=== PATIENT | female | born 1960 | race Caucasian/White ===

== ENCOUNTER 2021-04-04 19:35 | Inpatient (IN) ==
[2021-04-04 20:45] LABS: Basophils # (auto) 0.01 K/uL (0-0.2); Basophils % (auto) 0.1 %; Hematocrit (blood only) 43.7 % (37-47); Hemoglobin 15.3 g/dL (12.0-16.0); Immature Granulocytes # (auto) 0.02 K/uL (0.00-0.02); Immature Granulocytes % (auto) 0.2 %; Mean Corpuscular Hemoglobin 30.7 pg (25-34); Mean Corpuscular Volume 87.6 fL (80-100); Monocytes # (auto) 1.08 K/uL (0.11-0.59); Monocytes % (auto) 10.8 %; Neutrophils # (auto) 8.16 K/uL (1.4-6.5); Neutrophils % (auto) 81.9 %; Platelet Count 246 K/uL (130-400); RDW Coefficient of Variation 12.3 % (11.5-14.5); RDW Standard Deviation 39.2 fL (36.4-46.3); Red Blood Count 4.99 M/uL (4.2-5.4); White Blood Count 9.97 K/uL (4.8-10.8)
[2021-04-04 21:19] LABS: Albumin Level 3.3 gm/dl (3.4-5.0); BUN Creatinine Ratio 20.5 (10-20); Calcium 9.4 mg/dl (8.5-10.1); Creatinine Clr Calc Pharmacy 53.4 ml/min; Est GFR (African American) 73.2 ml/min; Est GFR (Non-African American) 63.1 ml/min; Potassium 4.4 mmol/L (3.5-5.1)
[2021-04-04 21:22] LABS: Albumin Globulin Ratio 0.7 (0.9-2); Bilirubin,Total 3.7 mg/dl (0.2-1); Globulin 4.4 gm/dl (2.5-4.0); Total Protein 7.7 gm/dl (6.4-8.2)
[2021-04-04] MEDS ORDERED: SODIUM CHLORIDE 0.9% 1000ML 1,000 ML IV ONE (21:58)
--- NOTE | 2021-04-04 21:59 | Emergency Department Note ---
History of Present Illness General Chief complaint: Vertigo Stated complaint: VERTIGO, DEHYDRATION Time Seen by Provider: 04/04/21 21:33 Source: patient Mode of arrival: ambulatory Limitations: no limitations History of Present Illness Maximum Pain Intensity: 10 This patient is a 61-year-old female who presents to the emergency department accompanied by her daughter for evaluation of possible dehydration. Patient states that she has been sick for the past 2 days. She initially had a migraine, then developed vertigo and reports a pain in the left side of her abdomen. She states that she often works out in the heat and was out in the heat all day prior to her symptoms started. She has not had anything to eat or drink in the past 2 days because she has no appetite. She feels tired. She states that she feels hot but is unsure if she has a fever. She states that she took ibuprofen last night. She rates her pain a 10/10. She states that she feels dizzy when she stands up. She fell out of bed a few days ago because of the dizziness. She denies any recent tick bites. She is not vaccinated for COV ID-19. She denies any recent exposures to COVID-19. Home Medications Medication Instructions Recorded Confirmed Type ascorbic acid (vitamin C) 1,000 mg 1 g PO QAM 04/04/21 04/04/21 History tablet (Vitamin C) cholecalciferol (vitamin D3) 50 50 mcg PO QAM 04/04/21 04/04/21 History mcg (2,000 unit) tablet (Vitamin D3) cider [id number] 300 1 tab PO QAM 04/04/21 04/04/21 History mg-8.3 mg tablet elderberry fruit 200 mg capsule 200 mg PO QAM 04/04/21 04/04/21 History ibuprofen 200 mg tablet 400 mg PO Q6H PRN 04/04/21 04/04/21 History multivitamin with minerals-folic 1 tab PO QAM 04/04/21 04/04/21 History acid 200 mcg chewable tablet (Multivitamin Gummies) turmeric 400 mg capsule 400 mg PO QAM 04/04/21 04/04/21 History zinc 50 mg tablet 50 mg PO QAM 04/04/21 04/04/21 History Allergies Allergy/AdvReac Type Severity Reaction Status Date / Time No Known Allergies Allergy Unverified 04/04/21 21:55 Past Med/Surg History Medical History No significant past medical history Social History Smoking Status: Never smoker Hx Alcohol Use: No Hx Substance Use: No Preferred Language: Romansh Beliefs That Will Affect Care: None Current Living Situation: Alone Other Information That Helps Us Care for You: No Feels Safe at Home: Yes Safety Concerns: Feels Safe At This Time Assistive Devices: None Review of Systems A total of 10 systems reviewed and were otherwise negative Physical Exam Vital Signs Vital Signs - 24 hr 04/04/21 19:42 04/04/21 21:40 04/04/21 22:03 Temperature 37.6 C H Temperature Source Temporal Artery Scan Pulse Rate - Lying 97 H Pulse Rate - Sitting 95 H Pulse Rate - Standing 95 H Pulse Rate 106 H Pulse Rate [Finger] 82 Pulse Rhythm [Finger] Pulse Strength [Finger] Respiratory Rate 18 18 Respiratory Effort / Characteristics Non-Labored Spontaneous Non-Labored Spontaneous Respiratory Depth Normal Normal Respiratory Pattern Blood Pressure - Lying 133/67 Blood Pressure - Sitting 125/80 Blood Pressure- Standing 123/75 Blood Pressure 105/64 Blood Pressure [Right Arm] 125/81 Blood Pressure Mean 77 Blood Pressure Mean [Right Arm] 95 Blood Pressure Position [Right Arm] Lying Pulse Oximetry 96 95 Oxygen Delivery Method Room Air Room Air Sepsis Recent Fever Within 48 Hours No Sepsis New/Unexplained Change in Mental Status No Sepsis Action Taken by Nursing No Action Required 04/04/21 23:30 04/05/21 01:53 Temperature Temperature Source Pulse Rate - Lying Pulse Rate - Sitting Pulse Rate - Standing Pulse Rate Pulse Rate [Finger] 90 85 Pulse Rhythm [Finger] Regular Pulse Strength [Finger] Normal Respiratory Rate 16 16 Respiratory Effort / Characteristics Non-Labored Spontaneous Non-Labored Spontaneous Respiratory Depth Normal Normal Respiratory Pattern Regular Blood Pressure - Lying Blood Pressure - Sitting Blood Pressure- Standing Blood Pressure Blood Pressure [Right Arm] 131/76 126/70 Blood Pressure Mean Blood Pressure Mean [Right Arm] 94 88 Blood Pressure Position [Right Arm] Lying Lying Pulse Oximetry 94 96 Oxygen Delivery Method Room Air Room Air Sepsis Recent Fever Within 48 Hours Sepsis New/Unexplained Change in Mental Status Sepsis Action Taken by Nursing VITALS: Vitals are noted on the nurse's note and reviewed by myself. GENERAL: This is a 61-year-old female, tired appearing, laying with her eyes closed in bed. SKIN: The skin was without rashes. EARS: External auditory canals clear, tympanic membranes pearly nance without erythema or effusion bilaterally. EYES: Pupils equal round and reactive to light and accommodation. NOSE: Patent, turbinates without inflammation or discharge. MOUTH: Mucous membranes somewhat dry. NECK: Supple without nuchal rigidity. No lymphadenopathy. HEART: Regular rate and rhythm without murmurs gallops or rubs. LUNGS: Clear to auscultation bilaterally without wheezes, rales or rhonchi. ABDOMEN: Positive bowel sounds x 4. Abdomen is soft, there is tenderness to palpation of the left upper quadrant and left lower quadrant. Positive guarding with tenderness in the left abdomen. MUSCULOSKELETAL: Full range of motion throughout. NEURO: Patient was alert and oriented to person place and time. Course Administered Medications Sodium Chloride (Nss 1000ml) 1,000 mls @ 80 mls/hr IV .[id number] DICK Stop: 05/05/21 03:48 Last Admin: 04/05/21 04:15 Dose: 80 mls/hr Documented by: [id number] Discontinued Medications Sodium Chloride (Nss 1000ml) 1,000 mls @ 999 mls/hr IV .[id number] ONE Stop: 04/04/21 22:58 Last Infusion: 04/04/21 23:02 Dose: 0 mls/hr Documented by: [id number] Admin: 04/04/21 21:59 Dose: 999 mls/hr Documented by: [id number] Ceftriaxone Sodium (Rocephin) 1,000 mg in 50 mls @ 100 mls/hr IV NOW STA Stop: 04/05/21 01:19 Last Infusion: 04/05/21 01:41 Dose: 0 mls/hr Documented by: [id number] Admin: 04/05/21 01:09 Dose: 100 mls/hr Documented by: [id number] Cefepime HCl (Maxipime) 2,000 mg in 20 mls @ 5 mls/min IV NOW STA; Protocol Stop: 04/05/21 01:45 Last Admin: 04/05/21 02:10 Dose: 5 mls/min Documented by: [id number] Ioversol (Optiray 320 100ml) 100 ml IV ONCE ONE Stop: 04/04/21 23:20 Last Admin: 04/04/21 23:19 Dose: 93 ml Documented by: [id number] Medical Decision Making Differential Diagnosis Infection, dehydration, metabolic abnormality, hypo/hyperglycemia, electrolyte disturbance, anemia, hypoxia, cardiac sources, intracerebral event, toxicologic, neurologic, as well as other pathologies. Home Medications Current Medication List: was personally reviewed by me Laboratory Data Attestation: I reviewed the patient's lab results. Result diagrams: 04/04/21 20:28 04/04/21 20: Lab Results 04/04/21 04/04/21 04/05/21 Range/Units 20: 20: 00:20 WBC 9.97 (4.8-10.8) K/uL RBC 4.99 (4.2-5.4) M/uL Hgb 15.3 (12.0-16.0) g/dL Hct 43.7 (37-47) % MCV 87.6 (80-100) fL MCH 30.7 (25-34) pg MCHC 35.0 (32-36) g/dL RDW Std Deviation 39.2 (36.4-46.3) fL RDW Coeff of Saravanan 12.3 (11.5-14.5) % Plt Count 246 (130-400) K/uL MPV 9.0 (7.4-10.4) fL Immature Gran % (Auto) 0.2 % Neut % (Auto) 81.9 % Lymph % (Auto) 7.0 % Laurens % (Auto) 10.8 % Eos % (Auto) 0.0 % Baso % (Auto) 0.1 % Neut # (Auto) 8.16 H (1.4-6.5) K/uL Lymph # (Auto) 0.70 L (1.2-3.4) K/uL Laurens # (Auto) 1.08 H (0.11-0.59) K/uL Eos # (Auto) 0.00 (0-0.5) K/uL Baso # (Auto) 0.01 (0-0.2) K/uL Immature Gran # (Auto) 0.02 (0.00-0.02) K/uL Sodium 135 L (136-145) mmol/L Potassium 4.4 (3.5-5.1) mmol/L Chloride 103 (98-107) mmol/L Carbon Dioxide 23 (21-32) mmol/L Anion Gap 9.0 (3-11) BUN 20 H (7-18) mg/dl Creatinine 0.98 (0.6-1.2) mg/dl Est Cr Clr Drug Dosing 53.4 ml/min Est GFR ( Amer) 73.2 ml/min Est GFR (Non-Af Amer) 63.1 ml/min BUN/Creatinine Ratio 20.5 H (10-20) Glucose 98 (70-99) mg/dl Calcium 9.4 (8.5-10.1) mg/dl Magnesium 2.2 (1.8-2.4) mg/dl Total Bilirubin 3.7 H (0.2-1) mg/dl AST 35 (15-37) U/L ALT 68 (12-78) U/L Alkaline Phosphatase 169 H (45-117) U/L Total Creatine Kinase 46 (26-192) U/L Total Protein 7.7 (6.4-8.2) gm/dl Albumin 3.3 L (3.4-5.0) gm/dl Globulin 4.4 H (2.5-4.0) gm/dl Albumin/Globulin Ratio 0.7 L (0.9-2) Urine Color Cottle Urine Appearance Cloudy A (Clear) Urine pH 5.5 (4.5-7.5) Ur Specific Hines > 1.045 H (1.000-1.030) Urine Protein 2+ H (Negative) Urine Glucose (UA) Negative (Negative) Urine Ketones 3+ H (Negative) Urine Blood 3+ H (Negative) Urine Nitrite Positive A (Negative) Urine Bilirubin 1+ H (Negative) Urine Urobilinogen Positive H (Negative) Ur Leukocyte Esterase 2+ H (Negative) Urine WBC (Auto) >30 H (0-5) /hpf Urine RBC (Auto) >30 H (0-4) /hpf U Hyaline Cast (Auto) 1-5 (0-5) /lpf U Epithel Cells (Auto) 0-5 (0-5) /lpf Urine Bacteria (Auto) 4+ H (Negative) COVID-19 Eval Order SARS-CoV-2 (PCR) (Negative) 04/05/21 04/05/21 Range/Units 00:55 00:55 WBC (4.8-10.8) K/uL RBC (4.2-5.4) M/uL Hgb (12.0-16.0) g/dL Hct (37-47) % MCV (80-100) fL MCH (25-34) pg MCHC (32-36) g/dL RDW Std Deviation (36.4-46.3) fL RDW Coeff of Saravanan (11.5-14.5) % Plt Count (130-400) K/uL MPV (7.4-10.4) fL Immature Gran % (Auto) % Neut % (Auto) % Lymph % (Auto) % Laurens % (Auto) % Eos % (Auto) % Baso % (Auto) % Neut # (Auto) (1.4-6.5) K/uL Lymph # (Auto) (1.2-3.4) K/uL Laurens # (Auto) (0.11-0.59) K/uL Eos # (Auto) (0-0.5) K/uL Baso # (Auto) (0-0.2) K/uL Immature Gran # (Auto) (0.00-0.02) K/uL Sodium (136-145) mmol/L Potassium (3.5-5.1) mmol/L Chloride (98-107) mmol/L Carbon Dioxide (21-32) mmol/L Anion Gap (3-11) BUN (7-18) mg/dl Creatinine (0.6-1.2) mg/dl Est Cr Clr Drug Dosing ml/min Est GFR ( Amer) ml/min Est GFR (Non-Af Amer) ml/min BUN/Creatinine Ratio (10-20) Glucose (70-99) mg/dl Calcium (8.5-10.1) mg/dl Magnesium (1.8-2.4) mg/dl Total Bilirubin (0.2-1) mg/dl AST (15-37) U/L ALT (12-78) U/L Alkaline Phosphatase (45-117) U/L Total Creatine Kinase (26-192) U/L Total Protein (6.4-8.2) gm/dl Albumin (3.4-5.0) gm/dl Globulin (2.5-4.0) gm/dl Albumin/Globulin Ratio (0.9-2) Urine Color Urine Appearance (Clear) Urine pH (4.5-7.5) Ur Specific Hines (1.000-1.030) Urine Protein (Negative) Urine Glucose (UA) (Negative) Urine Ketones (Negative) Urine Blood (Negative) Urine Nitrite (Negative) Urine Bilirubin (Negative) Urine Urobilinogen (Negative) Ur Leukocyte Esterase (Negative) Urine WBC (Auto) (0-5) /hpf Urine RBC (Auto) (0-4) /hpf U Hyaline Cast (Auto) (0-5) /lpf U Epithel Cells (Auto) (0-5) /lpf Urine Bacteria (Auto) (Negative) COVID-19 Eval Order Covid19 at [facility] SARS-CoV-2 (PCR) NEGATIVE (Negative) Imaging Data Attestation: I personally reviewed and interpreted this imaging study as follows: Radiologist's Impression: CT ABDOMEN & PELVIS With Contrast: No prior exam for comparison. Massive left-sided hydronephrosis, likely UPJ etiology. Please see the discussion below. Normal cardiac size. Left lower lobe atelectasis. Minimal right posterior dependent atelectasis. No pleural effusion or pneumothorax. Unremarkable gallbladder and biliary system. Normal liver, spleen, pancreas and bilateral adrenal glands. Normal right kidney. Massive dilatation of the left renal collecting system suggestive of severe hydronephrosis. There is no dilatation of the left ureter combination of findings suggestive of left UPJ etiology. Urological consultation recommended. The stomach is unremarkable. Nonspecific small bowel. Moderate fecal debris within the colon, more significant distally, cannot exclude mild constipation. Distinct appendix not seen with no inflammation in the region of the cecum to suggest acute appendicitis. Unremarkable urinary bladder. The uterus is anteverted. Mild degenerative disease of the spine. Radiologist: Nanette Huddleston MD MDM Narrative Continuous case monitor: Order was placed for continuous case monitor. Patient was placed on the case monitor. Patient was noted to be in normal sinus rhythm at an initial rate of 90 bpm. The patient is a 61-year-old female who presents today complaining of possible heat exhaustion. Patient has not been eating or drinking. She has been feeling dizzy and has left-sided abdominal pain. She is very tender in the left upper and lower quadrants on exam. Labs revealed no leukocytosis or anemia. Bilir ubin was found to be elevated at 3.7, AST and ALT are normal. A CT of the abdomen/pelvis shows "massive hydronephrosis" which appears to be secondary to a UPJ obstruction. Patient's urinalysis is suggestive of infection. She was given IV Rocephin. Urology was consulted and medicine was consulted for admission. Impression & Plan Obstruction of left ureteropelvic junction (UPJ), Hydronephrosis of left kidney, Urinary tract infection Discharge Plan Visit Data Chief Complaint: Vertigo Stated Complaint: VERTIGO, DEHYDRATION ED Provider: [facility] ED Midlevel Provider: Angela Park Discharge Problem: Obstruction of left ureteropelvic junction (UPJ), Hydronephrosis of left kidney, Urinary tract infection Patient Disposition: Admitted As Inpatient Discharge Instructions Interventions: ED Discharge Assessment Last Done: 04/05/21 03:26 Discharge Problem: Urinary tract infection Qualifiers: Urinary tract infection type: site unspecified Hematuria presence: with hematuria Qualified Code(s): N39.0 - Urinary tract infection, site not specified
[2021-04-04 22:54] LABS: Magnesium 2.2 mg/dl (1.8-2.4)
[2021-04-04] MEDS ORDERED: OPTIRAY 320 100ml IV ONE (23:19)
[2021-04-05 00:44] LABS: Appearance Urine Cloudy (Clear); Bacteria Urine Automated 4+ (Negative); Blood Urine 3+ (Negative); Color Urine Orange; Epithelial Cell Urine Auto 0-5 /lpf (0-5); Glucose Urine UA Negative (Negative); Ketones Urine 3+ (Negative); Leukocyte Esterase Urine 2+ (Negative); Nitrite Urine Positive (Negative); Protein Urine 2+ (Negative); RBC Urine Automated >30 /hpf (0-4); Specific Gravity Urine > 1.045 (1.000-1.030); Urobilinogen Urine Positive (Negative); WBC Urine Automated >30 /hpf (0-5); pH Urine 5.5 (4.5-7.5)
[2021-04-05 00:45] LABS: Bilirubin Urine 1+ (Negative)
[2021-04-05] MEDS ORDERED: cefTRIAXone SODIUM 1,000 MG/50 ML BAG IV STA (00:50)
--- NOTE | 2021-04-05 01:18 | Urology Consultation ---
Date of Consultation April 05, 2021 Assessment & Plan (1) Hydronephrosis: The etiology of patient's hydronephrosis is uncertain at this time. We will proceed as follows: Patient be admitted to the hospital in the hospital service By urinalysis it appears that the patient has a urinary tract infection. She is currently receiving antibiotics in the form of Rocephin which should continue and can be tailored once culture results are available We will keep the patient n.p.o. for the present time and will have her CAT scan reviewed by attending urologist to determine if cystoscopy will be required. History of Present Illness Reason for Consultation: Hydronephrosis of the left kidney History of Present Illness This 61-year-old female who presented to the emergency department secondary to vague complaints. Patient notes that approximately 2 to 3 days ago she developed a migraine headache that she felt was related to dehydration. 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 As noted her dehydration resulted in a headache which led the patient to feel generally unwell to the point where she presented to the emergency department. In the emergency department the patient had labs and imaging which independently reviewed. The patient did have a CT scan of the abdomen and pelvis that showed left-sided hydronephrosis with massive dilatation of the left renal collecting system. A CBC revealed her white blood cell count, hemoglobin, hematocrit, and platelet count are all within normal range. Chemistry profile showed her sodium was 135. Potassium was within normal range and BUN had a slight elevation at 20. Her creatinine was within the normal range. Patient was noted to have an elevated bilirubin of 3.7. Alkaline phosphatase was elevated at 169. There is no elevation of her total creatinine kinase levels. Her transaminases were noted to be normal. Urinalysis revealed cloudy urine which was positive for nitrites and bilirubin. Her urine also showed 2+ leukocyte esterase and greater than 30 white blood cells per high-power field. 4+ bacteria was noted on this specimen. A Covid test has been ordered and is pending. As the patient had nonspecific symptomatology I question her on her litany of symptoms. She denies any falls or head injuries. She has not had any double or blurry vision. She denies any epistaxis or rhinitis and she denies any sore throat. She denies any chest or neck pain. She denies any cough or shortness of breath. She notes that she did feel feverish with occasional chills but admits she did not take her temperature. She has not had any diarrhea. She does note some abdominal pain that is primarily on the left side of her upper abdomen which does not radiate and does not have any modifying factors. She does note some left-sided flank pain. She denies any dysuria or urinary frequency. She denies any hematuria. She denies any localized weakness. The patient's daughter was present at bedside and they did report a family history of kidney stones. The patient's daughter notes that she has had kidney stones in the past made of calcium oxalate as well as bilirubin. To the best of the patient's knowledge she has never suffered a kidney stone. At the time of my interview the patient was resting in bed and she was in no distress. Allergies Allergy/AdvReac Type Severity Reaction Status Date / Time No Known Allergies Allergy Unverified 04/04/21 21:55 Home Medications Medication Instructions Recorded Confirmed Type ascorbic acid (vitamin C) 1,000 mg 1 g PO QAM 04/04/21 04/04/21 History tablet (Vitamin C) cholecalciferol (vitamin D3) 50 50 mcg PO QAM 04/04/21 04/04/21 History mcg (2,000 unit) tablet (Vitamin D3) cider [id number] 300 1 tab PO QAM 04/04/21 04/04/21 History mg-8.3 mg tablet elderberry fruit 200 mg capsule 200 mg PO QAM 04/04/21 04/04/21 History ibuprofen 200 mg tablet 400 mg PO Q6H PRN 04/04/21 04/04/21 History multivitamin with minerals-folic 1 tab PO QAM 04/04/21 04/04/21 History acid 200 mcg chewable tablet (Multivitamin Gummies) turmeric 400 mg capsule 400 mg PO QAM 04/04/21 04/04/21 History zinc 50 mg tablet 50 mg PO QAM 04/04/21 04/04/21 History Patient History Medical History No significant past medical history Social History Smoking Status: Never smoker Feels Safe at Home: Yes Review of Systems Constitutional: as per Subjective / HPI Eyes: as per Subjective / HPI Ear, Nose, Mouth, Throat: as per Subjective / HPI Respiratory: as per Subjective / HPI Cardiovascular: as per Subjective / HPI Gastrointestinal: as per Subjective / HPI Genitourinary: as per Subjective / HPI Musculoskeletal: as per Subjective / HPI Integumentary: as per Subjective / HPI Neurologic: as per Subjective / HPI Physical Exam Constitutional: well developed and well nourished; no acute distress Eyes: PERRL, conjunctivae normal, anicteric sclerae ENMT: Ears: no hearing impairment Nose: no external nose abnormality Mouth: no oropharynx abnormality and no tongue abnormality Neck: trachea midline Respiratory: normal respiratory effort, lungs clear to auscultation Cardiovascular: Rate/Rhythm: regular rate and regular rhythm Gastrointestinal (Abdomen): Patient's abdomen is soft and nondistended. There are no masses organomegaly. I do not appreciate any hernias. Patient did have pain with palpation in the left upper quadrant and to a lesser degree the left lower quadrant. There is no rebound tenderness or guarding. Musculoskeletal: No gross orthopedic abnormalities. No calf tenderness. Skin: no rashes Neurologic: moves all extremities Psychiatric: A+Ox3, euthymic affect Genitourinary: + CVA tenderness (Left-sided noted with percussion. No CVA tenderness on the right.) Results & Data ([facility]) Vital Signs (Past 12 Hours) Vital Signs Temp Pulse Pulse Resp BP BP Pulse Ox 04/04/21 23:30 90 16 131/76 94 04/04/21 21:40 82 18 125/81 95 04/04/21 19:42 37.6 C H 106 H 18 105/64 96 PG Care Time/CCT Total # of Minutes Spent Total Time Spent with Patient: Total time spent is greater than 50% in coordination of care (as documented) at patient's floor/unit and/or counseling patient: Coding Level of Care Code 66096 Inpt Consult Level 5 Diagnoses Hydronephrosis N13.30
[2021-04-05] MEDS ORDERED: CEFEPIME 2,000 MG/20 ML VIAL IV STA (01:42)
--- NOTE | 2021-04-05 02:02 | History & Physical Report ---
Date of Service April 05, 2021 Assessment & Plan (1) Sepsis: Plan: Secondary to complicated UTI GMF CS, Cefepime Urology consult Re: Obstructive uropathy (Patient already evaluated at the ER by provider belt sander stone. N.p.o. status recommended in anticipation of possible procedure in a.m.) DVT prophylaxis per Lovenox subcu Full code Text document was generated using [employer] voice recognition software. It may contain grammatical or spelling errors. Kindly contact undersigned for clarification of any documentation item in question. History of Present Illness Chief Complaint: Dizziness, abdominal pain Primary Care Provider: Ryan Perez PA-C History obtained from patient and records. Medical history significant for hyperlipidemia. 2 days history of achy left-sided abdominal pain with nausea, poor appetite. Dizziness described as lightheadedness. No diarrhea. No hematuria, no dysuria symptoms. No prior episodes. Patient denies chest pain, S OB. At the ER, patient given ceftriaxone for UTI. Medical History as above Surgical History : Gynecologic procedures tonsillectomy/adenoidectomy Family History : Stroke Personal/Social history : Non-smoker, no EtOH intake, mail service coordinator Allergies Allergy/AdvReac Type Severity Reaction Status Date / Time No Known Allergies Allergy Unverified 04/04/21 21:55 Home Medications Medication Instructions Recorded Confirmed Type ascorbic acid (vitamin C) 1,000 mg 1 g PO QAM 04/04/21 04/04/21 History tablet (Vitamin C) cholecalciferol (vitamin D3) 50 50 mcg PO QAM 04/04/21 04/04/21 History mcg (2,000 unit) tablet (Vitamin D3) cider [id number] 300 1 tab PO QAM 04/04/21 04/04/21 History mg-8.3 mg tablet elderberry fruit 200 mg capsule 200 mg PO QAM 04/04/21 04/04/21 History ibuprofen 200 mg tablet 400 mg PO Q6H PRN 04/04/21 04/04/21 History multivitamin with minerals-folic 1 tab PO QAM 04/04/21 04/04/21 History acid 200 mcg chewable tablet (Multivitamin Gummies) turmeric 400 mg capsule 400 mg PO QAM 04/04/21 04/04/21 History zinc 50 mg tablet 50 mg PO QAM 04/04/21 04/04/21 History Past Med/Surg History Medical History No significant past medical history Social History Smoking Status: Never smoker Hx Alcohol Use: No Hx Substance Use: No Preferred Language: Estonian Beliefs That Will Affect Care: None Current Living Situation: Alone Other Information That Helps Us Care for You: No Feels Safe at Home: Yes Safety Concerns: Feels Safe At This Time Assistive Devices: None Review of Systems Review of Systems: As per HPI, all 10 systems reviewed, all other ROS negative Physical Exam Physical Exam: GENERAL: Comfortable, pleasant, no respiratory distress SKIN: Normal color, warm HEENT: [place] palpebral conjunctivae, no ptosis, dry buccal mucosa NECK : Supple, no tenderness CHEST : CTA, no tenderness HEART : RRR, no obvious murmurs ABDOMEN: Some distention, minimal left-sided abdominal tenderness EXTREMITIES : No LE swelling/tenderness, no other conspicuous deformities noted NEUROLOGIC : Coherent, no facial asymmetry, no other gross focality Results & Data Results & Data ([facility]) Vital Signs (Past 12 Hours) Vital Signs Temp Pulse Pulse Resp BP BP Pulse Ox 04/05/21 01:53 85 16 126/70 96 04/04/21 23:30 90 16 131/76 94 04/04/21 21:40 82 18 125/81 95 04/04/21 19:42 37.6 C H 106 H 18 105/64 96 Laboratory Results Laboratory Results WBC 9.97 K/uL (4.8-10.8) 04/04/21 20:28 RBC 4.99 M/uL (4.2-5.4) 04/04/21 20:28 Hgb 15.3 g/dL (12.0-16.0) 04/04/21 20:28 Hct 43.7 % (37-47) 04/04/21 20:28 MCV 87.6 fL (80-100) 04/04/21 20:28 MCH 30.7 pg (25-34) 04/04/21 20:28 MCHC 35.0 g/dL (32-36) 04/04/21 20:28 RDW Std Deviation 39.2 fL (36.4-46.3) 04/04/21 20:28 RDW Coeff of [place] 12.3 % (11.5-14.5) 04/04/21 20: Plt Count 246 K/uL (130-400) 04/04/21 20: MPV 9.0 fL (7.4-10.4) 04/04/21 20:28 Immature Gran % (Auto) 0.2 % 04/04/21 20: Neut % (Auto) 81.9 % 04/04/21 20: Lymph % (Auto) 7.0 % 04/04/21 20:28 [place] % (Auto) 10.8 % 04/04/21 20: Eos % (Auto) 0.0 % 04/04/21 20: Baso % (Auto) 0.1 % 04/04/21 20: Neut # (Auto) 8.16 K/uL (1.4-6.5) H 04/04/21 20:28 Lymph # (Auto) 0.70 K/uL (1.2-3.4) L 04/04/21 20:28 [place] # (Auto) 1.08 K/uL (0.11-0.59) H 04/04/21 20:28 Eos # (Auto) 0.00 K/uL (0-0.5) 04/04/21 20: Baso # (Auto) 0.01 K/uL (0-0.2) 04/04/21 20: Immature Gran # (Auto) 0.02 K/uL (0.00-0.02) 04/04/21 20: Sodium 135 mmol/L (136-145) L 04/04/21 20:28 Potassium 4.4 mmol/L (3.5-5.1) 04/04/21 20:28 Chloride 103 mmol/L (98-107) 04/04/21 20:28 Carbon Dioxide 23 mmol/L (21-32) 04/04/21 20:28 Anion Gap 9.0 (3-11) 04/04/21 20:28 BUN 20 mg/dl (7-18) H 04/04/21 20:28 Creatinine 0.98 mg/dl (0.6-1.2) 04/04/21 20:28 Est Cr Clr Drug Dosing 53.4 ml/min 04/04/21 20:28 Est GFR ( Amer) 73.2 ml/min 04/04/21 20:28 Est GFR (Non-Af Amer) 63.1 ml/min 04/04/21 20:28 BUN/Creatinine Ratio 20.5 (10-20) H 04/04/21 20:28 Glucose 98 mg/dl (70-99) 04/04/21 20:28 Calcium 9.4 mg/dl (8.5-10.1) 04/04/21 20:28 Magnesium 2.2 mg/dl (1.8-2.4) 04/04/21 20:28 Total Bilirubin 3.7 mg/dl (0.2-1) H 04/04/21 20:28 AST 35 U/L (15-37) 04/04/21 20:28 ALT 68 U/L (12-78) 04/04/21 20:28 Alkaline Phosphatase 169 U/L (45-117) H 04/04/21 20:28 Total Creatine Kinase 46 U/L (26-192) 04/04/21 20:28 Total Protein 7.7 gm/dl (6.4-8.2) 04/04/21 20:28 Albumin 3.3 gm/dl (3.4-5.0) L 04/04/21 20:28 Globulin 4.4 gm/dl (2.5-4.0) H 04/04/21 20:28 Albumin/Globulin Ratio 0.7 (0.9-2) L 04/04/21 20:28 Urine Color [place] 04/05/21 00:20 Urine Appearance Cloudy (Clear) A 04/05/21 00:20 Urine pH 5.5 (4.5-7.5) 04/05/21 00:20 Ur Specific [place] > 1.045 (1.000-1.030) H 04/05/21 00:20 Urine Protein 2+ (Negative) H 04/05/21 00:20 Urine Glucose (UA) Negative (Negative) 04/05/21 00:20 Urine Ketones 3+ (Negative) H 04/05/21 00:20 Urine Blood 3+ (Negative) H 04/05/21 00:20 Urine Nitrite Positive (Negative) A 04/05/21 00:20 Urine Bilirubin 1+ (Negative) H 04/05/21 00:20 Urine Urobilinogen Positive (Negative) H 04/05/21 00:20 Ur Leukocyte Esterase 2+ (Negative) H 04/05/21 00:20 Urine WBC (Auto) >30 /hpf (0-5) H 04/05/21 00:20 Urine RBC (Auto) >30 /hpf (0-4) H 04/05/21 00:20 U Hyaline Cast (Auto) 1-5 /lpf (0-5) 04/05/21 00:20 U Epithel Cells (Auto) 0-5 /lpf (0-5) 04/05/21 00:20 Urine Bacteria (Auto) 4+ (Negative) H 04/05/21 00:20 COVID-19 Eval Order Covid19 at [facility] 04/05/21 00:55 SARS-CoV-2 (PCR) NEGATIVE (Negative) 04/05/21 00:[address] abdomen pelvis initial read: No prior examfor comparison. Massive left-sided hydronephrosis, likelyUPJ etiology. Please see the discussion below. Normal cardiac size. Left lower lobe atelectasis. Minimal right posterior dependent atelectasis. No pleural effusion or pneumothorax. Unremarkable gallbladder and biliarysystem. Normal liver, spleen, pancreas and bilateral adrenal glands. Normal right kidney. Massive dilatation of the left renal collecting systemsuggestive of severe hydronephrosis. There is no dilatation of the left ureter combination of findings suggestive of left UPJ etiology. Urological consultation recommended. The stomach is unremarkable. Nonspecific small bowel. Moderate fecal debris within the colon, more significant distally, cannot exclude mild constipation. Distinct appendix not seen with no inflammation in the region of the cecumto suggest acute appendicitis. Unremarkable urinarybladder. The uterus is anteverted. Mild degenerative disease of the spine.
[2021-04-05] MEDS ORDERED: PROMETHAZINE HCL 12.5 MG in SODIUM CHLORIDE 0.9% 50 ML IV PRN (03:49)
[2021-04-05] MEDS ORDERED: traMADol HCL 50 MG TABLET PO PRN (03:49)
[2021-04-05] MEDS ORDERED: MoRPHine SULFATE 4 MG/ML 1 ML CARP\\VIAL IV PRN (03:49)
[2021-04-05] MEDS ORDERED: LORazepam 0.25 MG/0.5 ML VIAL IV PRN (03:49)
[2021-04-05] MEDS ORDERED: CEFEPIME CONSULT ACTIVE PRN (03:49)
[2021-04-05] MEDS: SODIUM CHLORIDE 0.9% 1000ML 1,000 ML IV SCH ×2 (04:15→17:35)
[2021-04-05 08:00] LABS: Basophils # (auto) 0.02 K/uL (0-0.2); Basophils % (auto) 0.3 %; Eosinophils # (auto) 0.01 K/uL (0-0.5); Eosinophils % (auto) 0.1 %; Hematocrit (blood only) 37.9 % (37-47); Hemoglobin 13.2 g/dL (12.0-16.0); Immature Granulocytes # (auto) 0.01 K/uL (0.00-0.02); Immature Granulocytes % (auto) 0.1 %; Mean Corpuscular Hgb Conc 34.8 g/dL (32-36); Mean Platelet Volume 9.4 fL (7.4-10.4); Monocytes # (auto) 0.98 K/uL (0.11-0.59); Monocytes % (auto) 13.7 %; Neutrophils # (auto) 5.14 K/uL (1.4-6.5); Neutrophils % (auto) 71.8 %; Platelet Count 241 K/uL (130-400); RDW Coefficient of Variation 12.3 % (11.5-14.5); RDW Standard Deviation 39.7 fL (36.4-46.3); Red Blood Count 4.26 M/uL (4.2-5.4); White Blood Count 7.16 K/uL (4.8-10.8)
[2021-04-05 08:31] LABS: BUN Creatinine Ratio 26.1 (10-20); Calcium 8.9 mg/dl (8.5-10.1); Creatinine Clr Calc Pharmacy 68.8 ml/min; Est GFR (African American) 99.5 ml/min; Est GFR (Non-African American) 85.9 ml/min; Potassium 4.3 mmol/L (3.5-5.1)
[2021-04-05] MEDS: ENOXAPARIN INJ 30 MG/0.3 ML SYR SQ SCH (08:31)
--- NOTE | 2021-04-05 08:34 | CT Scan Report ---
CT OF THE ABDOMEN AND PELVIS WITH CONTRAST CLINICAL HISTORY: abdominal pain, elevated bilirubin COMPARISON STUDY: None. TECHNIQUE: Following IV administration of 93 mL of Optiray, axial images of the abdomen and pelvis we re obtained from the lung bases to the proximal femurs. Images were reviewed in the axial, sagittal, and coronal planes. IV contrast was administered without complication. Automated exposure control wa s utilized for the study. A dose lowering technique was utilized adhering to the principles of ALARA . CT DOSE: 317.09 mGy.cm FINDINGS: There is a trace left pleural effusion. No pneumatosis, free air or portal venous gas is pr esent. Liver, spleen, adrenal glands, right kidney and pancreas are normal. There is marked left hydr onephrosis with marked left renal cortical thinning. The caliber of the left ureter is normal. There is no ureteral calculus. Note is made of a 2 mm calculi is within the left renal pelvis which does no t result in the obstruction. There is urothelial thickening of the left collecting system and proxima l left ureter. In addition, there is apparent debris within the dependent aspect of the left collecti ng system. There is adjacent perinephric stranding. There is no evidence for a bowel obstruction. Mod erate amount stool within the colon and rectum is noted. 1 cm sclerotic lesion within the L4 vertebra l body is indeterminate although probably benign. Prominent left periaortic lymph nodes are noted. Th jazmín are probably reactive. None are pathologically enlarged. IMPRESSION: 1. Marked left hydronephrosis with normal caliber left ureter with left renal cortical thinning. The findings represent a left UPJ obstruction. However, urothelial thickening, layering debris and perine phric stranding raise the possibility of a superimposed infection. Correlation with urinalysis recomm ended. Urology consultation is also suggested as an underlying lesion cannot be completely excluded. 2. 2 mm left renal pelvis calculus which does not result in the obstruction. 3. No biliary ductal dilatation. ACT 112: Negative or not required by law. Electronically signed by: Guevara Malcolm M.D. 04/05/2021 8:33 AM
[2021-04-05] MEDS ORDERED: NON-FORMULARY MEDICATION (Multivit With Min-Folic Acid [Multivitamin Gummies] 200 mcg Tabl PO SCH (09:00)
--- NOTE | 2021-04-05 10:46 | Urology Progress Note ---
Date of Service April 05, 2021 Assessment & Plan (1) Hydronephrosis of left kidney: (2) Urinary tract infection: Plan: 61 year-old female patient admitted with dehydration and UTI, found to have marked left-sided hydronephrosis. -Plan of care reviewed with Dr. Knutson, on-call urologist. -Patient clinically improving since admission. -She is currently afebrile. -Labs reviewed - white count and creatinine normal. -Urinalysis suspicious for infection, urine culture pending. -Preliminary blood cultures pending. -Imaging reviewed and notable for severe left-sided hydronephrosis. Question megaureter and/or UPJ obstruction, likely chronic for patient. -As she is afebrile, without significant flank pain, and creatinine stable, no acute intervention indicated at this time. -Okay to have diet today. -Recommend close monitoring, supportive care, and continued antibiotic therapy. -Will continue to follow while inpatient. Please consult our service urgently if patient develops fever >101F, intractable pain or nausea, as this will necessitate urgent surgical intervention. Admission and Anticipated Discharge Date Admission Date: April 05, 2021 Subjective Patient examined at bedside. She is alert, awake, comfortable, and non-toxic in appearance. Reports she feels much better today compared to yesterday. No longer having any nausea or vomiting. Denies fevers or chills. Denies dysuria or hematuria but notes her urine looks "terrible". Denies significant urinary frequency/urgency. Denies flank or abdominal pain. Feels lower back tenderness with twisting movement. Does state she felt tender in left flank area yesterday but this has since resolved. Remains NPO. Overall, has had improvement in symptoms since admission. Chart review: Afebrile. T-max in 24 hours 37.6. Wbc 7.16 Hgb 13.2 Creatinine 0.76 Urine culture pending. Blood cultures pending. Denies additional urologic concerns today. Review of Systems Constitutional: as per Subjective / HPI; no fever and no chills Gastrointestinal: as per Subjective / HPI; no nausea and no vomiting Genitourinary: as per Subjective / HPI Physical Exam Constitutional: well developed and well nourished; no acute distress and not ill appearing Respiratory: normal respiratory effort and able to speak in complete sentences; no respiratory distress and no audible wheezes Gastrointestinal (Abdomen): Inspection/Auscultation: abdomen normal to inspection; abdomen not distended Percussion/Palpation: abdomen soft; abdomen nontender and no guarding Psychiatric: Orientation: alert, oriented x 3 and cooperative Affect: euthymic affect Genitourinary: no CVA tenderness Results & Data ([facility]) Vital Signs (Past 12 Hours) Vital Signs Temp Pulse Resp BP Pulse Ox 04/05/21 07:00 37.5 C 88 20 111/65 96 04/05/21 03:40 37.3 C 89 18 119/73 96 04/05/21 03:30 37.3 C 89 18 119/73 96 04/05/21 03:23 37.5 C 85 18 112/74 97 04/05/21 01:53 85 16 126/70 96 04/04/21 23:30 90 16 131/76 94 PG Care Time/CCT Total # of Minutes Spent Total Time Spent with Patient: Total time spent is greater than 50% in coordination of care (as documented) at patient's floor/unit and/or counseling patient: Coding Level of Care Code None Diagnoses Hydronephrosis of left kidney N13.30 Urinary tract infection N39.0; R31.9 Hematuria presence: with hematuria Urinary tract infection type: site unspecified (1) Urinary tract infection Hematuria presence: with hematuria Urinary tract infection type: site u nspecified Qualified Code(s): N39.0 - Urinary tract infection, site not specified; R31.9 - Hematuria, unspecified
[2021-04-05] MEDS: CEFEPIME 2,000 MG in SYRINGE 0 ML IV SCH (14:42)
[2021-04-05] MEDS: ACETAMINOPHEN 325 MG TAB PO PRN (16:13)
--- NOTE | 2021-04-05 16:18 | Hospitalist Progress Note ---
Date of Service April 05, 2021 Assessment & Plan (1) Sepsis: Plan: Sepsis Complicated urinary tract infection Obstructive uropathy/hydronephrosis --CT ABD:Marked left hydronephrosis with normal caliber left ureter with left renal cortical thinning. The findings represent a left UPJ obstruction. However, urothelial thickening, layering debris and perinephric stranding raise the possibility of a superimposed infection. Correlation with urinalysis recommended. Urology consultation is also suggested as an underlying lesion cannot be completely excluded. 2 mm left renal pelvis calculus which does not result in the obstruction. No biliary ductal dilatation. Possibly chronic obstruction as per urology. No plan for acute intervention -Blood/Urine Cx:Pending Continue cefepime empirically Advance diet as tolerated Appreciate urology input DVT Px: Lovenox SQ Code Status Full code Admission and Anticipated Discharge Date Admission Date: April 05, 2021 Subjective Patient is seen and examined at bedside States feeling better today Flank pain decreased Denies dysuria, hematuria Also denies chest pain, dizziness, nausea Discussed with urology today Review of Systems Review of Systems: All systems reviewed & are unremarkable except as noted in Subjective Physical Exam Physical Exam: Physical Exam: Vitals signs as noted above General Appearance:Moderately built and nourished, no apparent distress Head: normocephalic, Atraumatic Eyes: normal inspection, EOMI Neck: supple, Trachea midline Respiratory/Chest: Normal breath sounds, CTA Cardiovascular: S1, S2, No murmur Abdomen/GI:Soft, Left Flank tender, Bowel sounds present Extremities/Musculoskeletal:normal inspection, no edema Neurologic/Psych:AAOX3, grossly no focal neurological deficits Skin: normal color, warm Results & Data Results & Data ([facility]) Vital Signs (Past 12 Hours) Vital Signs Temp Pulse Resp BP Pulse Ox 04/05/21 16:00 37.5 C 87 20 111/67 97 04/05/21 07:00 37.5 C 88 20 111/65 96 Laboratory Results Short CBC 04/04/21 04/05/21 Range/Units 20:28 07: WBC 9.97 7.16 (4.8-10.8) K/uL Hgb 15.3 13.2 (12.0-16.0) g/dL Hct 43.7 37.9 (37-47) % Plt Count 246 241 (130-400) K/uL BMP 04/04/21 04/05/21 20:28 07:29 Sodium 135 L 138 Potassium 4.4 4.3 Chloride 103 108 H Carbon Dioxide 23 22 BUN 20 H 20 H Creatinine 0.98 0.76 Glucose 98 90 Calcium 9.4 8.9 Cardiac Enzymes 04/04/21 Range/Units 20:28 Total Creatine Kinase 46 (26-192) U/L Liver Function 04/04/21 Range/Units 20:28 Total Bilirubin 3.7 H (0.2-1) mg/dl AST 35 (15-37) U/L ALT 68 (12-78) U/L Alkaline Phosphatase 169 H (45-117) U/L Albumin 3.3 L (3.4-5.0) gm/dl Urine 04/05/21 Range/Units 00:20 Urine Color [place] Urine Appearance Cloudy A (Clear) Urine pH 5.5 (4.5-7.5) Ur Specific [place] > 1.045 H (1.000-1.030) Urine Protein 2+ H (Negative) Urine Glucose (UA) Negative (Negative)
[2021-04-06] MEDS: CEFEPIME 2,000 MG in SYRINGE 0 ML IV SCH ×2 (01:44→13:33)
[2021-04-06] MEDS: SODIUM CHLORIDE 0.9% 1000ML 1,000 ML IV SCH (05:14)
[2021-04-06] MEDS: ACETAMINOPHEN 325 MG TAB PO PRN ×2 (05:14→12:51)
[2021-04-06] MEDS: ENOXAPARIN INJ 30 MG/0.3 ML SYR SQ SCH (07:52)
[2021-04-06 08:16] LABS: Hematocrit (blood only) 34.5 % (37-47); Hemoglobin 11.9 g/dL (12.0-16.0); Mean Corpuscular Hemoglobin 30.6 pg (25-34); Mean Corpuscular Hgb Conc 34.5 g/dL (32-36); Mean Corpuscular Volume 88.7 fL (80-100); Mean Platelet Volume 9.1 fL (7.4-10.4); Platelet Count 271 K/uL (130-400); RDW Coefficient of Variation 12.4 % (11.5-14.5); RDW Standard Deviation 40.1 fL (36.4-46.3); Red Blood Count 3.89 M/uL (4.2-5.4); White Blood Count 3.89 K/uL (4.8-10.8)
[2021-04-06 08:45] LABS: Albumin Level 2.5 gm/dl (3.4-5.0); Calcium 8.6 mg/dl (8.5-10.1); Creatinine Clr Calc Pharmacy 98.7 ml/min; Est GFR (African American) 120.5 ml/min; Est GFR (Non-African American) 103.9 ml/min; Potassium 4.3 mmol/L (3.5-5.1)
[2021-04-06 08:57] LABS: Albumin Globulin Ratio 0.6 (0.9-2); Bilirubin,Total 1.1 mg/dl (0.2-1); Total Protein 6.5 gm/dl (6.4-8.2)
[2021-04-06] MEDS ORDERED: BUTALBITAL/ACETAMIN/CAFFEINE TAB PO PRN (13:30)
--- NOTE | 2021-04-06 17:44 | Hospitalist Progress Note ---
Date of Service April 06, 2021 Assessment & Plan (1) Sepsis: Plan: Sepsis Complicated urinary tract infection Obstructive uropathy/hydronephrosis --CT ABD:Marked left hydronephrosis with normal caliber left ureter with left renal cortical thinning. The findings represent a left UPJ obstruction. However, urothelial thickening, layering debris and perinephric stranding raise the possibility of a superimposed infection. Correlation with urinalysis recommended. Urology consultation is also suggested as an underlying lesion cannot be completely excluded. 2 mm left renal pelvis calculus which does not result in the obstruction. No biliary ductal dilatation. Possibly chronic obstruction as per urology. No plan for acute intervention -Blood Cx:No growth to date -Urine Cx: Gram-negative Continue cefepime empirically Tolerated diet Appreciate urology input DVT Px: Lovenox SQ Code Status Full code Admission and Anticipated Discharge Date Admission Date: April 05, 2021 Subjective Patient is seen and examined at bedside Offers no complaints Eager to get discharged Flank pain resolved Denies dysuria, hematuria, chest pain, dizziness, nausea Urine Cx pending Review of Systems Review of Systems: All systems reviewed & are unremarkable except as noted in Subjective Physical Exam Physical Exam: Physical Exam: Vitals signs as noted above General Appearance:Moderately built and nourished, no apparent distress Head: normocephalic, Atraumatic Eyes: normal inspection, EOMI Neck: supple, Trachea midline Respiratory/Chest: Normal breath sounds, CTA Cardiovascular: S1, S2, No murmur Abdomen/GI:Soft, non tender, Bowel sounds present Extremities/Musculoskeletal:normal inspection, no edema Neurologic/Psych:AAOX3, grossly no focal neurological deficits Skin: normal color, warm Results & Data Results & Data ([facility]) Vital Signs (Past 12 Hours) Vital Signs Temp Pulse Resp BP Pulse Ox 04/06/21 15:06 36.8 C 87 20 132/79 100 04/06/21 08:00 36.8 C 70 20 114/68 97 Laboratory Results Short CBC 04/06/21 Range/Units 07:51 WBC 3.89 L (4.8-10.8) K/uL Hgb 11.9 L (12.0-16.0) g/dL Hct 34.5 L (37-47) % Plt Count 271 (130-400) K/uL [facility] 04/06/21 07:51 Sodium 141 Potassium 4.3 Chloride 113 H Carbon Dioxide 24 BUN 16 Creatinine 0.53 L Glucose 99 Calcium 8.6 Liver Function 04/06/21 Range/Units 07:51 Total Bilirubin 1.1 H D (0.2-1) mg/dl AST 27 (15-37) U/L ALT 45 (12-78) U/L Alkaline Phosphatase 136 H (45-117) U/L Albumin 2.5 L (3.4-5.0) gm/dl
[2021-04-07] MEDS: CEFEPIME 2,000 MG in SYRINGE 0 ML IV SCH (02:57)
[2021-04-07] MEDS: ENOXAPARIN INJ 30 MG/0.3 ML SYR SQ SCH (07:43)
[2021-04-07 08:45] LABS: BUN Creatinine Ratio 22.3 (10-20); Creatinine Clr Calc Pharmacy 93.4 ml/min; Est GFR (African American) 118.3 ml/min; Est GFR (Non-African American) 102.1 ml/min; Potassium 3.7 mmol/L (3.5-5.1)
--- NOTE | 2021-04-07 08:54 | Hospitalist Progress Note ---
Date of Service April 07, 2021 Assessment & Plan (1) Sepsis: Plan: Sepsis Complicated urinary tract infection Obstructive uropathy/hydronephrosis --CT ABD:Marked left hydronephrosis with normal caliber left ureter with left renal cortical thinning. The findings represent a left UPJ obstruction. However, urothelial thickening, layering debris and perinephric stranding raise the possibility of a superimposed infection. Correlation with urinalysis recommended. Urology consultation is also suggested as an underlying lesion cannot be completely excluded. 2 mm left renal pelvis calculus which does not result in the obstruction. No biliary ductal dilatation. Possibly chronic obstruction as per urology. No plan for acute intervention -Blood Cx:No growth to date -Urine Cx: E.Coli Continue cefepime for 4 days Tolerated diet Appreciate urology input Sensation to p.o. antibiotics to complete the course Advised to follow-up with urology upon discharge DVT Px: Lovenox SQ Code Status Full code Admission and Anticipated Discharge Date Admission Date: April 05, 2021 Subjective Patient is seen and examined at bedside States feeling well Headache resolved No recurrence of flank pain Denies dysuria, hematuria, chest pain, dizziness, nausea Urine Cx growing pansensitive E. coli Review of Systems Review of Systems: As per HPI, all 10 systems reviewed, all other ROS negative Physical Exam Physical Exam: Physical Exam: Vitals signs as noted above General Appearance:Moderately built and nourished, no apparent distress Head: normocephalic, Atraumatic Eyes: normal inspection, EOMI Neck: supple, Trachea midline Respiratory/Chest: Normal breath sounds, CTA Cardiovascular: S1, S2, No murmur Abdomen/GI:Soft, non tender, Bowel sounds present Extremities/Musculoskeletal:normal inspection, no edema Neurologic/Psych:AAOX3, grossly no focal neurological deficits Skin: normal color, warm Results & Data Results & Data ([facility]) Vital Signs (Past 12 Hours) Vital Signs Temp Pulse Resp BP Pulse Ox 04/07/21 07:40 36.8 C 72 18 106/69 98 04/06/21 23:22 36.8 C 80 16 133/76 97 Laboratory Results [facility] 04/07/21 08:03 Sodium 143 Potassium 3.7 Chloride 111 H Carbon Dioxide 27 BUN 13 Creatinine 0.56 L Glucose 89 Calcium 9.0 Liver Function 04/06/21 Range/Units 07:51 Total Bilirubin 1.1 H D (0.2-1) mg/dl Alkaline Phosphatase 136 H (45-117) U/L
--- NOTE | 2021-04-07 09:27 | Discharge Summary ---
Date of Service April 07, 2021 Admission HPI Per Admitting Provider History obtained from patient and records. Medical history significant for hyperlipidemia. 2 days history of achy left-sided abdominal pain with nausea, poor appetite. Dizziness described as lightheadedness. No diarrhea. No hematuria, no dysuria symptoms. No prior episodes. Patient denies chest pain, S OB. At the ER, patient given ceftriaxone for UTI. Medical History as above Surgical History : Gynecologic procedures tonsillectomy/adenoidectomy Family History : Stroke Personal/Social history : Non-smoker, no EtOH intake, mail order clerk Admission Exam Per Admitting Provider Physical Exam Physical Exam: GENERAL: Comfortable, pleasant, no respiratory distress SKIN: Normal color, warm HEENT: [place] palpebral conjunctivae, no ptosis, dry buccal mucosa NECK : Supple, no tenderness CHEST : CTA, no tenderness HEART : RRR, no obvious murmurs ABDOMEN: Some distention, minimal left-sided abdominal tenderness EXTREMITIES : No LE swelling/tenderness, no other conspicuous deformities noted NEUROLOGIC : Coherent, no facial asymmetry, no other gross focality Principal Diagnosis Sepsis Complicated urinary tract infection Obstructive uropathy Discharge Data Allergies Allergy/AdvReac Type Severity Reaction Status Date / Time No Known Allergies Allergy Unverified 04/04/21 21:55 Consultations 04/05/21 01:13 ED Decision to Admit Stat 04/05/21 03:49 Consult Urology Routine Ordered Studies 04/04/21 22:56 CT abd pelvis IV con only Urgent Hospital Course (1) Sepsis: Sepsis Complicated urinary tract infection Obstructive uropathy/hydronephrosis --CT ABD:Marked left hydronephrosis with normal caliber left ureter with left renal cortical thinning. The findings represent a left UPJ obstruction. However, urothelial thickening, layering debris and perinephric stranding raise the possibility of a superimposed infection. Correlation with urinalysis recommended. Urology consultation is also suggested as an underlying lesion cannot be completely excluded. 2 mm left renal pelvis calculus which does not result in the obstruction. No biliary ductal dilatation. Possibly chronic obstruction as per urology. No plan for acute intervention -Blood Cx:No growth to date -Urine Cx: E.Coli Continue cefepime for 3 days Tolerated diet Appreciate urology input Sensation to p.o. antibiotics to complete the course Advised to follow-up with urology upon discharge DVT Px: Lovenox SQ Code Status Full code Total Time Total Time Spent Total Time Spent (In Minutes): 41 minutes Discharge Plan Discharge Items Patient Disposition: Home - Self-Care Reason For Visit: SEPSIS Discharge Diagnosis: Sepsis Complicated urinary tract infection Obstructive uropathy Activity: Per Instructions section Exercise/Sports: Gradually increase as tolerated Non-emergency contact: Primary Care Provider and Urologist Call non-emergency contact if: you have any medication questions, your symptoms worsen, your pain is not controlled, your pain is concerning for you and you have a fever Follow-up/Referrals: Ryan Perez PA-C [Primary Care Provider] - Diet: Regular Addtl Attending Provider Instructions: Follow-up with your primary care physician Ryan Perez in 1 week as advised Follow-up with your urologist--Urology office will call you with follow up appointment Complete antibiotic course as prescribed for urinary tract infection Your final blood cultures are pending at the time of discharge. Follow-up with your physician for results. Seek immediate medical attention if your symptoms reoccur or worsen Please take all medications as instructed on discharge list below. Please call if you have any questions or problems. You can reach a [facility] hospitalist on duty at [facility] 24 hours a day by calling [phone] Pending Studies at Discharge: Yes Studies:: Blood Cultures Stand-Alone Forms: [facility] [employer], Smoking Cessation Medications and DC Order Prescriptions: New ciprofloxacin HCl 500 mg tablet 500 mg PO BID Qty: 10 RF: 0 Continued ibuprofen 200 mg Tablet 400 mg PO Q6H PRN (Reason: fever/pain) RF: 0 ascorbic acid (vitamin C) [Vitamin C] 1,000 mg Tablet 1 g PO QAM RF: 0 zinc 50 mg Tablet 50 mg PO QAM RF: 0 cider [id number] 300-8.3 mg Tablet 1 tab PO QAM RF: 0 elderberry fruit 200 mg Capsule 200 mg PO QAM RF: 0 cholecalciferol (vitamin D3) [Vitamin D3] 50 mcg (2,000 unit) Tablet 50 mcg PO QAM RF: 0 Multivitamin Gummies 200 mcg Tablet,Chewable 1 tab PO QAM RF: 0 turmeric 400 mg Capsule 400 mg PO QAM RF: 0 Discharge Orders: Discharge Order (Routine); Ordered 04/07/21 Ordered By: Bentley Hair/Other Patient Handouts: Healthy Kidneys, How Your Kidneys Work, Understanding Hydronephrosis Admission Data Admit Date/Time: 04/05/21 02:09 Attending Provider: Bentley Manzo Admit Provider: Lj Lassiter Primary Care Provider: Ryan Perez Other Providers: Hermelindo Cooley ; Selwyn Oneil ; Ravin Deras ; Andra Perez ; Dakota Knutson ; Camille Jim ; Jacque Skinner ; Sherine Miramontes ; Jj Mcduffie ; Quinten Lorenzo ; Anna Gaitan ; Luciana Miramontes ; Lj Lassiter Other Interventions: Discharge Summary Assessment (RN) Last Done: 04/07/21 10:12
== END 2021-04-07 11:13 | disposition home or self-care (01) | DRG 872 ==
LOC: ED 19:35 → SUATTDRO 04-05 02:09 → 3E 04-05 02:09